=== PATIENT | female | born 1960 | race Caucasian/White ===

== ENCOUNTER 2025-03-28 12:55 | Outpatient (AMB) | payer OTHER, SELFPAY ==
[2025-03-28 13:16] VITALS: BMI 28.2
--- NOTE | 2025-03-28 13:16 | HO.SPINEOV ---
Vital Signs 03/28/25 13:16 Height 5 ft 6 in Weight 175 lb BMI 28.2 Intake Visit Reasons: cervical radiculopathy Intake Note: Ms. Thomas is here today c/o Neck and shoulder pain. 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 She is a very nice 64-year-old female history of previous C6-7 anterior cervical fusion done many years ago who presents today in the office today for evaluation neck pain on the left side radiating to her shoulder. She also has a numbness that radiates down her whole left arm encompassing her whole arm into her thumb, index and middle finger. She often finds herself dropping things, or having trouble with fine motor tasks such as buttoning her pants. She does not have any pain radiating down the arm into the hand, it is simply a numbness. She does get an uncomfortable shock which will often radiate from her wrist upper her arm various times throughout the day. She is very limited on what she can take for pain because she has a solitary kidney with only about 40% residual function left. Therefore her only real option is Tylenol. She has not done any physical therapy. She did have a cortisone injection done by what sounds like the [facility] pain management team. She tells me that they did it above her fusion so I am assuming C5-6 but it was of no help. 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 She had a long cali with ulcerative colitis including multiple abdominal surgeries and ultimately ended with a colostomy. She has that permanently. Bilateral carpal tunnel release. History of shoulder knee replacement, ACDF, hysterectomy. Denies any issues with the heart, lungs, liver, be bleeding disorders, blood clots or infections. Social hx: She smokes a cigarette or 2 a day. She will have 5 cocktails or drinks a week. Does not use any recreational drugs Medications: Lamotrigine, clonazepam, Lomotil and IV Sandostatin which helps with her stool consistency for her ostomy Allergies: Aspirin Physical exam: Awake alert oriented no acute distress, she has mild strength difference between her right and left hand but it is subtle. No loss of fine motor function of the hands. Positive Tinel's in both hands, negative Phalen's sign. Strength in the upper extremities and lower extremities is normal. Gait is normal. Reflexes diminished throughout with no signs of John or clonus. Imaging review: Cervical MRI done at [facility] shows anterior cervical fusion C6-7, she has degenerative disc disease at C5-6 primarily. I compared this to an MRI done 7 or 8 years ago and it looks very similar. There is moderate stenosis of the foramen on the left at C4-5 and moderate to severe C5-6. Impression: 64-year-old female presents for evaluation of neck pain, left trapezius pain, as well as numbness encompassing her whole left arm going into her thumb, index finger and middle finger. She has no pain radiating down the left arm. She does occasionally get pain that radiates from her wrist upper arm that feels like a shock. It is very transient but does happen a number of times throughout the day. Her MRI shows she does have some adjacent segment disease. Specifically C5-6 appears to be chronically degenerating but is not all that different than an MRI done 7 or 8 years ago at [facility]. I sent the patient for flexion-extension x-rays, the plate is in good position and there is no evidence of any problem with her previous fusion. No signs of instability with flexion or extension. I reviewed the case with Dr. Barrios, we think we could have to overlapping problems. The 1st is the neck pain radiating down to the shoulder with the numbness going into the arm and hand seems like it could fit with C6 given the distribution of the dermatome. However, the patient describes her whole arm being numb as well which would be somewhat unusual for strictly a single nerve root. She also has positive Tinel's and finds herself dropping things. She may have recurrent carpal tunnel syndrome which can be seen in patients with previous surgery. We think the best plan is to get an EMG of the left upper extremity to see if we can clarify which 1 maybe more predominant, or if both are present. If she does have recur carpal tunnel, he would like to start with doing a carpal tunnel release again and see how much that improves the numbness of the arm. Depending on how that responds, we could follow up with an ACDF at C5-6 if the symptoms are still troubling. If there is no carpal tunnel seen on the EMG, and it is pointing more in the direction of cervical radiculopathy, we could start with an ACDF. Thank you for allowing us to care for your patient. The total time spent with this visit with this patient was 45 minutes reviewing history, physical exam, cervical imaging review, and implementation of treatment plan or further diagnostic testing Robert Barrios MD,PhD [facility] Orders: Orders XR cervical spine 4V Today M50.90 - Cervical disc disorder, unspecified, unspecified cervical region NE electromyogram (EMG) Today G56.00 - Carpal tunnel syndrome, unspecified upper limb, M50.90 - Cervical disc disorder, unspecified, unspecified cervical region Coding Level of Care Code New Pt Level 4 (90628) Diagnoses Cervical disc disorder M50.90 Carpal tunnel syndrome G56.00
--- OUTSIDE RECORDS SUMMARY | 2025-03-28 13:20 | XMS_ITS | Patient Health Record ---
Author Organization [facility] Address [address] [place] [id number] Support Name Relationship Address Phone Unavailable Emergency Contact Unknown Tatyana Thomas Guarantor Unknown [phone] Medications Medication SIG (Take, Route, Frequency, Duration) Notes Start Date End Date Status predniSONE 10 MG 1 tab(s) orally once daily, weaning by 1/2 every week; Duration: 0 Active Protonix 20 MG 2 tab(s) orally once daily; Duration: 30 day(s) Active ORTHO-CYCLEN 35 MCG-0.25 MG 1 TAB(S) ORALLY ONCE DAILY; Duration: 28 DAY(S) *Please review for potential replacement for e-prescription and drug interaction check* Active PROzac 20 MG 1 TAB ORAL QD; Duration: 30 DAYS *Please review and pick correct strength-formulation from TestFreaksspan options. If intended option is not shown, discontinue and re-order from Quick Search* Active Percocet 5-325 MG 1-2 tabs orally Q4-6 hours prn pain; Duration: 0 Active DURAGESIC 25 MCG/HR 1 PATCH APPLIED TOPICALLY Q72H; Duration: 0 *Please review for potential replacement for e-prescription and drug interaction check* Active Percocet 5/325 MG 1 TAB ORAL 1-2-Q3-4H; Duration: 15 DAYS *Please review and pick correct strength-formulation from Medispan options. If intended option is not shown, discontinue and re-order from Quick Search* Active clonazePAM 0.5 MG DIRECTED QQ HS PRN; Duration: 30 DAYS *Please review and pick correct strength-formulation from Medispan options. If intended option is not shown, discontinue and re-order from Quick Search* Active Plan Of Treatment No Information Insurance Providers Payer Name Payer Address Payer Phone Subscriber Number Group Number Insured Name Patient Relationship to Insured Coverage Start Date Coverage End Date [facility] [id number] Tatyana Thomas Self - patient is the insured Medical (General) History Surgical History Surgery Date(Month/Year) umbilical hernia 1960 bilateral carpal tunnel surgeries 1984 c4-6 fused for disc problem 1998 nephrectomy for non-functioning/atrophie d kidney right 2003 total colectomy, ileostomy with resectio n of some ileum October 18 2004
--- OUTSIDE RECORDS SUMMARY | 2025-03-28 13:20 | XMS_ITS | Clinical Summary ---
Author Organization [facility] Address [address] [place] [address] Phone Care Team Providers Care Pricing Consultant Name Role Phone Jaylan Lemon DO Primary Care Provider [phone] Allergies Active Allergy Reactions Criticality Noted Date Comments Aspirin 10/28/2024 Medications octreotide (SandoSTATIN [place]) 10 mg suspension,extend ed rel reconIndications: Diarrhea, unspecified type,Ulcerative pancolitis with complication ([facility] V24, [facility] V28) Inject 10 mg into the shoulder, thigh, or buttocks every 28 (twenty-eight ) days. 1 each 11 5 10/29/19 26 Active diphenoxylate-atr opine (LOMOTIL) 2.5-0.025 mg per tabletIndications :Diarrhea, unspecified type,Ulcerative pancolitis with complication ([facility] V24, [facility] V28) Take 2 tablets by mouth 4 (four) times a day if needed for diarrhea. Max Daily Amount: 8 tablets 120 tablet 5 5 04/26/20 25 Active Encounters Date Type Department Care Team Description 12/31/2024 7:18 PM EDT - 12/31/2024 11:59 PM EDT Hospital Encounter [facility] MRI [address] [place] [address] Radiculopathy Discharge Disposition: Home or Self Care from Last 3 Months Surgical History Surgery Date Site/Laterality Comments HYSTERECTOMY Social History Tobacco Use Types Packs/Day Years Used Date Smoking Tobacco: Never Assessed Comments No Sex and Gender Information Value Date Recorded Sex Assigned at Not on file Legal Sex Female 2:49 AM EST Gender Identity Not on file Sexual Orientation Not on file Obstetrics History Last Filed Vital Signs Vital Sign Reading Time Taken Comments Blood Pressure - - Pulse - - Temperature - - Respiratory Rate - - Oxygen Saturation - - Inhaled Oxygen Concentration - - Weight 77.1 kg (170 lb) 11/13/2024 8:18 AM EDT Height 167.6 cm (5' 6 ) 11/13/2024 8:18 AM EDT Body Mass Index 27.44 11/13/2024 8:18 AM EDT Plan of Treatment Upcoming Encounters Date Type Department Care Team (Late st Contact Info) Description 04/22/2025 2:00 PM EDT Appointment [facility] Bone Density [address] [place] [address] Health Maintenance Due Date Last Done Comments Colorectal Cancer Screening: Colonoscopy 1961 DTaP,Tdap,and Td Vaccines (1 - Tdap) 1980 Pneumococcal Vaccine: 50+ Years (1 of 2 - PCV) 1980 Cervical Cancer Screening: P ap Smear 1982 Zoster Vaccines (1 of 2) 2011 RSV Immunization Adult Patients (1 - Risk 60-74 years 1-dose series) 2021 HIV Screening 05/29/2022 Hepatitis C Screening 05/29/2022 Medicare Annual Wellness Visit 05/29/2022 Social Influencers of Health Screening 05/29/2022 Depression Screening 06/26/2024 COVID-19 Vaccine (4 - 2024-2 6 season) 2025 06/22/2021, 10/05/2020, 09/14/2020 Influenza Vaccine (#1) 2025 03/28/2014 Breast Cancer Screening 11/13/2026 11/14/19, 09/09/2021 Cholesterol Screening (Lipid Panel) 11/08/2029 11/08/2024 HIB Vaccines Aged Out No longer eligi ble based on patient's age to complete this topic HPV Vaccines Aged Out No longer eligi ble based on patient's age to complete this topic Hepatitis A Vaccines Aged Out No long er eligible based on patient's age to complete this topic Hepatitis B Vaccines Aged Out No long er eligible based on patient's age to complete this topic IPV Vaccines Aged Out No longer eligi ble based on patient's age to complete this topic MMR Vaccines Aged Out No longer eligi ble based on patient's age to complete this topic Meningococcal ACWY Vaccine Aged Out N o longer eligible based on patient's age to complete this topic Meningococcal B Vaccine Aged Out No l onger eligible based on patient's age to complete this topic RSV Immunization Patients Under 20 months Aged Out No longer eligible b ased on patient's age to complete this topic Varicella Vaccines Aged Out No longer eligible based on patient's age to complete this topic Procedures Procedure Name Priority Date/Time Associated Diagnosis Comments MR CERVICAL SPINE WO CONTRAST Routine 12/31/2024 8:25 PM EDT Radiculopathy MG MAMMO DIGITAL SCREENING W DEWAYNE BILAT Routine 11/13/2024 8:23 AM EDT Encounter for screening mammogram for malignant neoplasm of breast Asymptomatic menopausal state LIPID PANEL WITH REFLEX TO DIRECT LDL Routine 11/08/2024 2:05 PM EDT Laboratory tests ordered as part of a complete physical exam (CPE) Vitamin B12 deficiency MS (congenital mitral stenosis) UC (ulcerative colitis 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 ACDF at C6-7. A central endplate osteophyte at C6 indents the cord and causes moderate narrowing of the spinal canal. 2. Degenerative changes at several other levels as detailed above. -------- FINAL REPORT -------- Dictated By: Chris Reese Dictated Date: 01/01/2025 09:01 ET Assigned Physician: Chris Reese Reviewed and Electronically Signed By: Chris Reese Signed Date: 01/01/2025 09:06 ET Workstation ID: [id number] Transcribed By: Self Edit Transcribed Date: 01/01/2025 09:01 ET Narrative 01/01/2025 9:06 AM EDT PROCEDURE: MRI of the cervical spine without intravenous contrast. TECHNIQUE: Sagittal and axial multisequence MRI of the cervical spine without intravenous contrast administration. HISTORY: radiculopathy COMPARISON: 04/06/2017. FINDINGS: Visualized portions of the brain and skull base are normal. The paraspinous soft tissues are normal. Straightening of the typical cervical lordosis. ACDF at C6-7. Normal alignment. No concerning marrow infiltrative lesion. The cord is normal in caliber and signal. Cervical disc levels: C2-3: Small left uncovertebral spurs. Mild left foraminal stenosis. No spinal stenosis. C3-4: Small bilateral uncovertebral spurs. Moderate right facet arthropathy. No spinal stenosis. Severe right and mild left foraminal stenosis. C4-5: Minimal bilateral uncovertebral spurs. Mild right and severe left facet arthropathy. No spinal stenosis. Mild right and moderate left foraminal stenosis. C5-6: Mild endplate irregularity. Small left and minimal right uncovertebral spurs. Mild bilateral facet arthropathy. Mild left-sided posterior ligamentous hypertrophy. Mild spinal stenosis. Moderate left foraminal stenosis. C6-7: Fusion level. A central osteophyte at C6 significantly indents the cord and causes moderate spinal stenosis. Small uncovertebral spurs with mild left foraminal stenosis. C7-T1: Mild degenerative irregularity of the endplates and facet joints. No spinal or foraminal stenosis. Procedure Note Chris Reese MD - 01/01/2025 PROCEDURE: MRI of the cervical spine without intravenous contrast. TECHNIQUE: Sagittal and axial multisequence MRI of the cervical spinewithout intravenous contrast administration. HISTORY: radiculopathy COMPARISON: 04/06/2017. FINDINGS: Visualized portions of the brain and skull base are normal. The paraspinous soft tissues are normal. Straightening of the typical cervical lordosis. ACDF at C6-7. Normalalignment. No concerning marrow infiltrative lesion. The cord is normal in caliber and signal. Cervical disc levels: C2-3: Small left uncovertebral spurs. Mild left foraminal stenosis. Nospinal stenosis. C3-4: Small bilateral uncovertebral spurs. Moderate right facetarthropathy. No spinal stenosis. Severe right and mild left foraminalstenosis. C4-5: Minimal bilateral uncovertebral spurs. Mild right and severe leftfacet arthropathy. No spinal stenosis. Mild right and moderate leftforaminal stenosis. C5-6: Mild endplate irregularity. Small left and minimal rightuncovertebral spurs. Mild bilateral facet arthropathy. Mild left-sidedposterior ligamentous hypertrophy. Mild spinal stenosis. Moderate leftforaminal stenosis. C6-7: Fusion level. A central osteophyte at C6 significantly indents thecord and causes moderate spinal stenosis. Small uncovertebral spurs withmild left foraminal stenosis. C7-T1: Mild degenerative irregularity of the endplates and facet joints.No spinal or foraminal stenosis. IMPRESSION: 1. ACDF at C6-7. A central endplate osteophyte at C6 indents the cordand causes moderate narrowing of the spinal canal. 2. Degenerative changes at several other levels as detailed above. -------- FINAL REPORT -------- Dictated By: Chris Reese Dictated Date: 01/01/2025 09:01 ET Assigned Physician: Chris Reese Reviewed and Electronically Signed By: Chris Reese Signed Date: 01/01/2025 09:06 ET Workstation ID: [id number] Transcribed By: Self Edit Transcribed Date: 01/01/2025 09:01 ET Jaylan Lemon DO [facility] MRI PROCEDURES Final Resu lt * MG Mammo Digital Screening w Dewayne bilat (11/13/2024 8:23 AM EDT) Anatomical Region Laterality Modality Breast Bilateral Mammography 11/13/2024 11:5 3 AM EDT Impressions 11/13/2024 11:56 AM EDT No mammographic evidence of malignancy. No suspicious interval change. A negative mammogram in the presence of a clinically suspicious palpable abnormality does not preclude the possibility of malignancy or alter the indications for biopsy. ASSESSMENT: BI-RADS 1: NEGATIVE RECOMMENDATION(S): 1: Routine screening mammogram BILATERAL in 1 year. [facility] [address], [address] -------- FINAL REPORT -------- Dictated By: Stephane Baird Dictated Date: 11/13/2024 11:53 ET Assigned Physician: Stephane Baird Reviewed and Electronically Signed By: Stephane Baird Signed Date: 11/13/2024 11:56 ET Workstation ID: [id number] Transcribed By: Self Edit Transcribed Date: 11/13/2024 11:53 ET Narrative 11/13/2024 11:56 AM EDT EXAM: SCREENING MAMMOGRAPHY, BILATERAL HISTORY: SCREENING. No additional history. COMPARISON: 09/09/21, 06/29/20 TECHNIQUE: Synthesized CC and MLO projections of each breast. Tomosynthesis of each breast in the CC and MLO projections. ADDITIONAL IMAGING: None Computer-aided detection was employed with the ZetrOZ AI 3-D. TISSUE DENSITY: There are scattered areas of fibroglandular density. (BI-RADS category B) FINDINGS: RIGHT BREAST: No suspicious mass. No suspicious calcification. No distortion. No additional suspicious right breast findings LEFT BREAST: No suspicious mass. No suspicious calcification. No distortion. No additional suspicious left breast findings Procedure Note Stephane Baird MD - 11/13/2024 EXAM: SCREENING MAMMOGRAPHY, BILATERAL HISTORY: SCREENING. No additional history. COMPARISON: 09/09/21, 06/29/20 TECHNIQUE: Synthesized CC and MLO projections of each breast.Tomosynthesis of each breast in the CC and MLO projections. ADDITIONAL IMAGING: None Computer-aided detection was employed with the ZetrOZ AI 3-D. TISSUE DENSITY: There are scattered areas of fibroglandular density.(BI-RADS category B) FINDINGS: RIGHT BREAST: No suspicious mass. No suspicious calcification. No distortion. Noadditional suspicious right breast findings LEFT BREAST: No suspicious mass. No suspicious calcification. No distortion. Noadditional suspicious left breast findings IMPRESSION: No mammographic evidence of malignancy. No suspicious interval change. A negative mammogram in the presence of a clinically suspicious palpableabnormality does not preclude the possibility of malignancy or alter theindications for biopsy. ASSESSMENT: BI-RADS 1: NEGATIVE RECOMMENDATION(S): 1: Routine screening mammogram BILATERAL in 1 year. [facility] location[facility] [address], [address] -------- FINAL REPORT -------- Dictated By: Stephane Baird Dictated Date: 11/13/2024 11:53 ET Assigned Physician: Stephane Baird Reviewed and Electronically Signed By: Stephane Baird Signed Date: 11/13/2024 11:56 ET Workstation ID: [id number] Transcribed By: Self Edit Transcribed Date: 11/13/2024 11:53 ET us Jaylan Lemon DO IMG BI PROCEDURES Final Resul t * (ABNORMAL) Lipid panel with reflex to direct LDL (11/08/2024 2:05 PM EDT) Cholesterol 260(H) 0 - 200 mg/dL LAB CHEMISTRY METHOD 11/08/2024 4:[address] [facility] Triglycerides 89 0 - 150 mg/dL LAB CHEMISTRY METHOD 11/08/2024 4:[address] [facility] HDL 189 >=40 mg/dL LAB CHEMISTRY METHOD 11/08/2024 4:[address] [facility] LDL Calculated 53 0 - 100 mg/dL LAB CHEMISTRY METHOD 11/08/2024 4:[address] [facility] VLDL Cholesterol Patrick 17.8 mg/dL LAB CHEMISTRY METHOD 11/08/2024 4:[address] [facility] Non HDL Chol. (LDL+VLDL) 71 <145 mg/dL LAB CHEMISTRY METHOD 11/08/2024 4:[address] [facility] Chol/HDL Ratio 1.4 0.0 - 4.4 LAB CHEMISTRY METHOD 11/08/2024 4:[address] [facility] Blood Venous blood specimen / Unknown Venipuncture / Unknown 11/08/2024 2:05 PM EDT 11/08/2024 2:05 PM EDT us Adam Akhtar LAB BLOOD ORDERABLES Final Resul t [facility] [address] [place] [address], [place] [phone] from Last 3 Months or Most Recently Relevant to Health Maintenance Insurance [facility] MEDIC[facility] Member Subscriber Plan / Payer (Ef fective 2023-Present) Name:TATYANA THOMAS Relation to Subscriber:Self Name:Tatyana Thomas Payer ID:[id number] Group ID:[id number] Type:Not on file Address: [place] [address] [address] [phone] MEDICA[place] - [place] Care Teams Pricing Consultant Relationship Specialty Start Date End Date Jaylan Lemon DO [address] [place] [phone] PCP - General Internal Medicine 07/30/24
== END 2025-03-28 14:29 | disposition home or self-care (01) ==
LOC: HO.HNS 12:56
PROVIDERS: PCP Internal Medicine; Referring Provider Internal Medicine; Visit Provider Physician Assistant
DX: M50.90 Cervical disc disorder, unspecified, unspecified cervical region (principal); G56.00 Carpal tunnel syndrome, unspecified upper limb
CPT/HCPCS: 99204

== ENCOUNTER 2025-03-28 12:55 | Outpatient (REF) | payer OTHER, SELFPAY ==
--- NOTE | ~2025-03-28 | XR_ITS ---
EXAMINATION: XR CERVICAL SPINE 4-5 VIEWS HISTORY: M50.90 - Cervical disc disorder, unspecified, unspecified cervical region COMPARISON: There are no prior studies available for comparison. FINDINGS: AP, and neutral, flexion, and extension lateral views of the cervical spine are submitted. Osseous mineralization is normal. The patient is status post anterior fusion of C6 and C7 with plate and screws. The fusion mass appears solid. The vertebral bodies maintain normal height. There is slight anterolisthesis of C5 on C6 measuring approximately 2 mm in neutral and flexion positions. This reduces on extension. There is moderate disc space narrowing at the C5-6 and C7-T1 levels. There is no prevertebral soft tissue swelling. XR/XR cervical spine 4V IMPRESSION: Status post anterior fusion of C6 and C7. Slight anterolisthesis of C5 on C6 measuring 2 mm in neutral and flexion positions, which reduces on extension. Electronically signed by: Vipul Romo MD 03/28/2025 02:49 PM EDT
--- OUTSIDE RECORDS SUMMARY | 2025-03-28 13:58 | XMS_ITS | Clinical Summary ---
Author Organization [facility] Address [address] [facility] [address] [place] [address] Phone Care Team Providers Care Game Designer/Creative Director Name Role Phone Jaylan Lemon DO Primary Care Provider [phone] Allergies Active Allergy Reactions Criticality Noted Date Comments Aspirin Rash Low 04/06/2020 Oxycodone Diarrhea 11/19/2020 explosive related to colostomy Medications clonazePAM (KlonoPIN) 1 MG tablet Take 1 tablet by mouth in the morning and 1 tablet in the evening. Active diphenoxylate-at ropine (LOMOTIL) 2.5-0.025 MG per tablet Take 1 tablet by mouth 1 (one) time each day Active lamoTRIgine (LaMICtal) 100 MG dispersible tablet Take 2.5 tablets by mouth 2 (two) times a day Active octreotide (SandoSTATIN) 50 MCG/ML injection Inject 30 mg into the shoulder, thigh, or buttocks every 21 (twenty-one) days Active methylphenidate (RITALIN) 10 MG tablet Take 1 tablet by mouth in the morning and 1 tablet in the evening. 2 Active Cholecalciferol (Vitamin D3) 50 MCG (1999) chewable tablet Chew 1 tablet Once for 1 dose 30 tablet 3 2 Active lisinopril 5 MG tablet Take 1 tablet (5 mg total) by mouth 1 (one) time each day 90 tablet 3 3 Active Active Problems Problem Noted Date Diagnosed Date Anxiety 11/19/2020 Asthma 11/19/2020 Bipolar disorder 11/19/2020 Stage 3a chronic kidney disease 11/19/2020 Iron deficiency anemia 11/19/2020 Proteinuria 11/19/2020 Total nephrectomy 11/19/2020 Vitamin D deficiency 11/19/2020 Accidental fall 07/26/2020 Contusion of right shoulder 07/26/2020 Contact with and (suspected) exposure to other viral communicable diseases 04/26/2020 Cough 04/22/2020 Family History Medical History Relation Comments Cancer Father Cancer Sibling Relation Status Comments Father Mother Sibling Social History Tobacco Use Types Packs/Day Years Used Date Smoking Tobacco: Former Cigarettes Q uit: 06/26/2015 Smokeless Tobacco: Never Tobacco Cessation:Counseling Given: No Alcohol Use Standard Drinks/Week Comments Yes 0 (1 standard drink = 0.6 oz pure alcohol) Alcoholic Drinks/day: Occasional social drink Comments Unknown Sex and Gender Information Value Date Recorded Sex Assigned at Not on file Legal Sex Female 4:44 PM EST Gender Identity Not on file Sexual Orientation Not on file Last Filed Vital Signs Vital Sign Reading Time Taken Comments Blood Pressure 110/64 12/05/2022 2:55 PM EDT Pulse 83 12/05/2022 2:55 PM EDT Temperature - - Respiratory Rate - - Oxygen Saturation - - Inhaled Oxygen Concentration - - Weight 69 kg (152 lb 3.2 oz) 12/05/2022 2:55 PM EDT Height 167.6 cm (5' 6 ) 08/19/2021 3:07 PM EST Body Mass Index 24.57 08/19/2021 3:07 PM EST Plan of Treatment Health Maintenance Due Date Last Done Comments Breast Cancer Screening 1961 Pneumococcal Vaccine: 50+ Ye ars (1 of 2 - PCV) 1980 Colorectal Cancer Screening: Annual FOBT 2010 Colorectal Cancer Screening: Colonoscopy 2010 Colorectal Cancer Screening: Sigmoidoscopy 2010 Influenza Vaccine (#1) 2025 Hepatitis B Vaccine Aged Out No longe r eligible based on patient's age to complete this topic Insurance [facility] ([id number]) [facility] ([id number]) Care Teams Game Designer/Creative Director Relationship Specialty Start Date End Date Jaylan Lemon DO [address] [place] [address] PCP - General 07/06/20
== END 2025-03-28 12:56 | disposition home or self-care (01) ==
LOC: HO.HOSX 12:55
PROVIDERS: PCP Internal Medicine; Referring Provider Internal Medicine; Visit Provider Physician Assistant
DX: M50.90 Cervical disc disorder, unspecified, unspecified cervical region (principal); G56.00 Carpal tunnel syndrome, unspecified upper limb
CPT/HCPCS: 72050; 99202

== ENCOUNTER → 2025-03-28 13:45 | Outpatient (BNV) | payer OTHER, SELFPAY | PROVIDERS: PCP Internal Medicine; Referring Provider Internal Medicine; Visit Provider Radiology Diagnostic Radiology | DX: M50.90 Cervical disc disorder, unspecified, unspecified cervical region (principal); Z98.1 Arthrodesis status | CPT/HCPCS: 72050 ==